=== PATIENT | female | born 1970 | race Caucasian/White ===

== ENCOUNTER 2022-06-07 12:34 | Emergency (ER) | payer MEDICARE, MEDICAID ==
[2022-06-07 13:30] LABS: HEMATOCRIT 40.8 % (36.0-47.0); HEMOGLOBIN 13.6 g/dl (12.0-15.5); MEAN CORPUSCULAR HEMOGLOBIN 28.4 pg (27.0-33.0); MEAN CORPUSCULAR HGB CONC 33.3 g/dl (32.0-36.5); MEAN CORPUSCULAR VOLUME 85.2 fl (80.0-96.0); PLATELET COUNT, AUTOMATED 262 10^3/uL (150-450); RED BLOOD COUNT 4.79 10^6/uL (4.00-5.40); WHITE BLOOD COUNT 6.6 10^3/uL (4.0-10.0)
[2022-06-07 14:07] LABS: AMPHETAMINES LEVEL URINE NEGATIVE (NEGATIVE); BARBITURATES URINE NEGATIVE (NEGATIVE); BENZODIAZEPINES URINE NEGATIVE (NEGATIVE); CANNABINOIDS URINE NEGATIVE (NEGATIVE); COCAINE METABOLITE URINE NEGATIVE (NEGATIVE); METHADONE URINE NEGATIVE (NEGATIVE); OPIATES URINE NEGATIVE (NEGATIVE); PHENCYCLIDINE URINE NEGATIVE (NEGATIVE)
[2022-06-07 14:10] LABS: ETHYL ALCOHOL (ETHANOL) 0.003 % (0.000-0.010)
[2022-06-07 14:11] LABS: BILIRUBIN,DIRECT 0.1 MG/DL (<0.4); SALICYLATE LEVEL < 3.0 MG/DL (<30)
[2022-06-07 14:12] LABS: ACETAMINOPHEN LEVEL < 2.0 UG/ML (10.0-20.0); ALKALINE PHOSPHATASE 86 U/L (46-116); ALT/SGPT 10 U/L (7.0-40); AST/SGOT 16 U/L (<34); BILIRUBIN,TOTAL 0.6 MG/DL (0.3-1.2); BLOOD UREA NITROGEN 21 MG/DL (9-23); CALCIUM LEVEL 9.3 MG/DL (8.5-10.1); CARBON DIOXIDE LEVEL 28 MMOL/L (20-31); CHLORIDE LEVEL 102 MMOL/L (98-107); CREATININE FOR GFR 0.52 MG/DL (0.55-1.30); GLOMERULAR FILTRATION RATE > 60.0 (>58); GLUCOSE, FASTING 104 MG/DL (60-100); POTASSIUM SERUM 3.7 MMOL/L (3.5-5.1); SODIUM LEVEL 140 MMOL/L (136-145); TOTAL PROTEIN 7.1 G/DL (5.7-8.2)
[2022-06-07 14:13] LABS: THYROID STIMULATING HORMONE 1.975 uIU/ML (0.55-4.78)
[2022-06-07 18:55] VITALS: BP 134/78
== END 2022-06-07 18:59 | disposition home or self-care (01) ==
LOC: EDBD 12:34 → M ED 12:34
DX: F43.0 Acute stress reaction (principal); R45.851 Suicidal ideations; R62.50 Unspecified lack of expected normal physiological development in childhood